=== PATIENT | female | born 1985 | race Caucasian/White ===

== ENCOUNTER 2018-03-01 13:46 | Emergency (ER) | payer OTHER ==
[~2018-03-01] VITALS: Ht 165.1 cm; Wt 54.4 kg
[2018-03-01] MEDS ORDERED: Norco 5mg/325mg tab ORAL ONE (14:15)
[2018-03-01] MEDS ORDERED: IBUPROFEN600 MG ORAL (14:45)
[2018-03-01] MEDS ORDERED: SILVADENE20 GM TP (14:45)
[2018-03-01] MEDS ORDERED: TRAMADOL HCL50 MG ORAL (14:45)
[2018-03-01 14:50] VITALS: BP 119/74
[2018-03-01 14:51] VITALS: BP 122/79
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
== END 2018-03-01 14:51 | disposition home or self-care (01) ==
LOC: EMR 14:13
DX: T21.27XA Burn of second degree of female genital region, initial encounter (principal); T24.112A Burn of first degree of left thigh, initial encounter; T31.0 Burns involving less than 10% of body surface; X10.0XXA Contact with hot drinks, initial encounter; Y93.89 Activity, other specified; Y92.9 Unspecified place or not applicable; Z88.0 Allergy status to penicillin
CPT/HCPCS: 99283